=== PATIENT | male | born 2000 | race Two or more races ===

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

== ENCOUNTER → 2019-09-06 | Emergency (ER) | payer OTHER ==
[~2019-09-06] VITALS: Ht 172.7 cm; Wt 72.6 kg
[~2019-09-06] MED LIST changes: +CIPRO500 MG PO; +INTESTINEX680 M1 PO; +KETO10TA2 PO; +LEVSIN/SL0.125 MG SL; +PEPCID AC20 MG PO
== END ==
LOC: ER 23:37
DX: K52.89 Other specified noninfective gastroenteritis and colitis (principal); B34.9 Viral infection, unspecified; R10.13 Epigastric pain; I88.0 Nonspecific mesenteric lymphadenitis; Z20.828 Contact with and (suspected) exposure to other viral communicable diseases

== ENCOUNTER 2019-09-10 23:21 | Inpatient (IN) | payer OTHER ==
[~2019-09-10] VITALS: Ht 175.3 cm; Wt 71.7 kg
[~2019-09-10 23:21] MED LIST changes: -CIPRO500 MG PO
--- NOTE | 2019-09-10 23:26 | NUR ---
PTE ALERTA Y ORIENTADO POR ADELAIDE, REFIERE PRESENTAR DOLOR ABDOMINAL Y DIARREAS X 4 EN EL LORI DE HOY.
--- NOTE | 2019-09-11 01:13 | NUR ---
PACIENTE ALERTA Y ORIENTADO EN ARIELLA ADELAIDE ESFERAS, ES ORIENTADO SOBRE ORDENES MEDICAS, REFIERE ENTENDER. SE COLECTAN MUESTRAS DE SALVADOR, SE CANALIZA VENA Y SE ADMINISTRAN MEDICAMENTOS. PACIENTE ENTREGA MUESTRA DE ESCRETA PARA FECAL LEUKOCYTES.
--- NOTE | 2019-09-11 07:08 | NUR ---
SE RECIBE PTE LA CUAL LA CUAL SE ENCUENTRA EN KRISTIE, CON BARANDAS ELEVADAS, AREA DE VENOPUNCION SE ENCUENTRA PATENTE Y SALTY DE EDEMA BAJANDO 0.9NSS AT 175 ML/HR. PTE PEND A RE-EVALUACION.
[2019-09-13] MEDS ORDERED: CIPRO500 MG PO (16:40)
[2019-09-13] MEDS ORDERED: INTESTINEX680 M1 PO (16:40)
== END 2019-09-13 17:03 | disposition home or self-care (01) | DRG 392 ==
LOC: ER 23:21 → SEC-K 09-11 11:55 → SURH 09-11 14:34
PROVIDERS: ADMIT Internal Medicine; ATTEND Internal Medicine
DX: A08.39 Other viral enteritis (principal); K66.0 Peritoneal adhesions (postprocedural) (postinfection); E86.0 Dehydration; E87.8 Other disorders of electrolyte and fluid balance, not elsewhere classified; Z03.818 Encounter for observation for suspected exposure to other biological agents ruled out

== ENCOUNTER 2020-07-08 08:00 | Outpatient (CLI) | payer OTHER ==
[~2020-07-08 08:00] MED LIST changes: +CIPRO500 MG PO
== END 2020-07-08 08:30 | disposition home or self-care (01) ==
LOC: PPH VACUNA 08:00
DX: Z23 Encounter for immunization (principal)

== ENCOUNTER 2020-07-29 08:00 | Outpatient (CLI) | payer OTHER | END 2020-07-29 08:30 | disposition home or self-care (01) | LOC: PPH VACUNA 08:00 | DX: Z23 Encounter for immunization (principal) ==

== ENCOUNTER → 2020-12-02 10:02 | Outpatient (CLI) | payer OTHER | END | disposition home or self-care (01) | LOC: LAB 10:02 | PROVIDERS: ATTEND Internal Medicine Cardiovascular Disease | DX: N39.0 Urinary tract infection, site not specified (principal) ==

== ENCOUNTER 2022-10-27 10:03 | Outpatient (CLI) | payer OTHER | END 2022-10-27 10:13 | disposition home or self-care (01) | LOC: PPH VACUNA 10:03 | PROVIDERS: ATTEND Emergency Medicine Pediatric Emergency Medicine | DX: Z23 Encounter for immunization (principal) | CPT/HCPCS: 90686; G0008 ==

== ENCOUNTER 2022-12-15 16:58 | Emergency (ER) | payer OTHER ==
[~2022-12-15] VITALS: Ht 167.6 cm; Wt 99.8 kg
[2022-12-15 18:49] LABS: HEMATOCRIT 47.1 % (39.0-48.0); HEMOGLOBIN 15.6 g/dL (13-16.00); MEAN CELL VOLUME 79.6 fL (80.0-100.00); MEAN CORPUSCULAR HEMOGLOBIN 26.4 pg (27.00-32.0); MEAN CORPUSCULAR HGB CONC 33.1 g/dl (32.0-36.0); PLATELET COUNT 262 K/uL (150-450); RED BLOOD COUNT 5.92 M/uL (4.00-6.00); RED CELL DISTRIBUTION WIDTH 14.9 % (11.5-14.5)
[2022-12-15 19:09] LABS: INR 1.04; PARTIAL THROMBOPLASTIN TIME 25.1 SECONDS (22.0-34.0); PROTHROMBIN TIME 10.9 SECONDS (9.0-11.5)
[2022-12-15 19:19] LABS: ALBUMIN 4.6 gm/dL (3.4-5.0); BILIRUBIN TOTAL 0.66 mg/dL (0.3-1.2); BILIRUBIN,CONJUGATED 0.14 mg/dL (0.0-0.2); BILIRUBIN,UNCONJUGATED 0.52 mg/dL (0.0-0.6); CALCIUM 9.9 mg/dL (8.5-10.1); CREATININE SERUM 1.34 mg/dL (0.70-1.30); GFR 66.06; GLOBULINA 4.5 G/DL (2.4-3.5); POTASSIUM 4.03 mEq/L (3.5-5.1); TOTAL PROTEIN 9.1 gm/dL (6.4-8.2)
[2022-12-15] MEDS ORDERED: PEPCID AC20 MG PO (21:02)
[2022-12-15] MEDS ORDERED: ONDANSETRON ODT8 MG PO (21:02)
== END 2022-12-15 21:09 | disposition home or self-care (01) ==
LOC: ER 16:58
PROVIDERS: General Practice
DX: K52.9 Noninfective gastroenteritis and colitis, unspecified (principal)

== ENCOUNTER 2023-04-16 19:03 | Emergency (ER) | payer OTHER ==
[~2023-04-16] VITALS: Ht 180.3 cm; Wt 90.7 kg
[~2023-04-16 19:03] MED LIST changes: +ONDANSETRON ODT8 MG PO
[2023-04-16] MEDS ORDERED: METHYLPREDNISOLONE SOD SUCC 125 MG VIAL IV STA (20:35)
[2023-04-16] MEDS ORDERED: CEFTRIAXONE SODIUM 1,000 MG VIAL IV STA (20:35)
[2023-04-16] MEDS ORDERED: LEVALBUTEROL HCL 1.25 MG/3 ML SOLUTION IH SCH (20:45)
[2023-04-16] MEDS ORDERED: BUDESONIDE 0.5 MG/2 ML AMPUL.NEB IH SCH (20:45)
[2023-04-16 21:06] LABS: HEMATOCRIT 43.6 % (39.0-48.0); HEMOGLOBIN 14.8 g/dL (13-16.00); MEAN CELL VOLUME 78.3 fL (80.0-100.00); MEAN CORPUSCULAR HEMOGLOBIN 26.6 pg (27.00-32.0); MEAN CORPUSCULAR HGB CONC 33.9 g/dl (32.0-36.0); PLATELET COUNT 208 K/uL (150-450); RED BLOOD COUNT 5.57 M/uL (4.00-6.00); RED CELL DISTRIBUTION WIDTH 15.4 % (11.5-14.5)
== END 2023-04-16 23:58 | disposition home or self-care (01) ==
LOC: ER 19:03
PROVIDERS: General Practice
DX: J40 Bronchitis, not specified as acute or chronic (principal); Z20.822 Contact with and (suspected) exposure to COVID-19